=== PATIENT | male | born 1970 | race Caucasian/White ===

== ENCOUNTER 2018-05-22 15:45 | Emergency (ER) | payer OTHER ==
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
[2018-05-22] MEDS ORDERED: HYDROmorphONE/DILAUDID 2 MG/ML INJ IVP ONE ×2 (16:32→17:09)
[2018-05-22] MEDS ORDERED: IOPAMIDOL (ISOVUE 370) 100 ML BTL IV ONE (16:34)
[2018-05-22 17:45] VITALS: BP 115/97
== END 2018-05-22 17:43 | disposition home or self-care (01) ==
DX: M79.605 Pain in left leg (principal); M79.9 Soft tissue disorder, unspecified
CPT/HCPCS: 82435-PO; 82565-PO; 82947-PO; 84132-PO; 84295-PO; 84520-PO; 85014-PO; 96374; J1170; Q9967

== ENCOUNTER 2018-05-27 00:03 | Emergency (ER) | payer OTHER ==
[2018-05-27] MEDS ORDERED: HYDROCOD/APAP 5/325 PREPACK#6 BTL TAKEHOME ONE (01:13)
[2018-05-27] MEDS ORDERED: LIDOCAINE 4%/MENTHOL 1% PATCH TD ONE (01:21)
--- NOTE | 2018-05-27 01:21 | EDPHY ---
H & P Stated Complaint: increasing L leg pain, "broke an artery 11 days ago", "susie sx" Time Seen by Provider: 05/27/18 00:30 HPI/ROS: HPI The patient presents with left thigh pain with swelling which has been present for the last several days though seems to be not improving. On May 16 the patient had an injury to his left thigh. He was seen at [facility] where he had an intramuscular hematoma with concern for arterial injury and is status post Gel-Foam embolization of 2 small branches of an artery in his thigh. He was seen in our emergency department on the for leg pain. He had a CTA of the extremity performed at that time which was normal. He now has ongoing pain over the last several days and is concerned because he is not improving. As he reports an achy pain throughout his left thigh associated with swelling which is making it difficult for him to sleep. He denies any numbness or tingling of his leg. He denies any coolness of his leg. He is using a knee immobilizer at this time. He has no new injury to his leg. He is awaiting an orthopedics appointment with Dr. Tori Aguilar in 3 days. He has not had any fevers or chills. He has been taking Percocet which was prescribed initially from [facility] and then refilled from our emergency department. He says this is helping his pain somewhat. REVIEW OF SYSTEMS Constitutional: No fever, no chills. Eyes: No discharge. ENT: No sore throat. Cardiovascular: No chest pain, no palpitations. Respiratory: No cough, no shortness of breath. Gastrointestinal: No abdominal pain, no vomiting. Genitourinary: No hematuria. Musculoskeletal: No back pain. Skin: No rashes. Neurological: No headache. PMHx: Arterial injury with thigh hematoma as detailed above Soc Hx: Housed FHx: PHYSICAL General Appearance: Alert, no distress Eyes: Pupils equal and round no pallor or injection ENT, Mouth: Mucous membranes moist Respiratory: Breathing comfortably Neurological: A&O, moves all extremities Skin: Warm and dry, no rashes Musculoskeletal: Neck is supple non tender Extremities: Right anterior thigh is tender to palpation, compartments of the thigh are soft, there are no overlying skin changes, there are 2+ DP pulses, there full range of motion of his toes, his entire leg is warm Psychiatric: Patient is oriented X 3, there is no agitation Source: Patient Exam Limitations: No limitations - Personal History Current Tetanus Diphtheria and Acellular Pertussis (TDAP): No Tetanus Vaccine Date: ~ 2012 - Medical/Surgical History Hx Asthma: No Hx Chronic Respiratory Disease: No Hx Diabetes: No Hx Cardiac Disease: No Hx Renal Disease: No Hx Cirrhosis: No Hx Alcoholism: No Hx HIV/AIDS: No Hx Splenectomy or Spleen Trauma: No Other PMH: MED HX-NONE. SURG-RHINOPLASTY. CELIAC. "broken artery" - Social History Smoking Status: Never smoked Constitutional: Initial Vital Signs Temperature (C) 36.7 C 05/27/18 00:07 Heart Rate 84 05/27/18 00:07 Respiratory Rate 20 05/27/18 00:07 Blood Pressure 112/77 05/27/18 00:07 O2 Sat (%) 96 05/27/18 00:07 O2 Delivery Mode Room Air Allergies/Adverse Reactions: No Known Allergies Allergy (Verified 05/27/18 00:07) Home Medications: Medication Instructions Recorded oxyCODONE IR 05/22/18 oxyCODONE IR [Oxycodone Ir (*)] 5 - 10 mg PO Q6 PRN #20 tab 05/22/18 oxyCODONE IR [Oxycodone Ir (*)] 5 - 10 mg PO Q6 PRN #20 tab 05/22/18 Hydrocodone/APAP 5/325 [[place] 1 - 2 tab PO Q6H PRN #15 tab 05/27/18 5/325 (*)] Medical Decision Making Differential Diagnosis: This is a 48-year-old male who had a traumatic injury to his left thigh on May 16, now with continued pain and swelling of his thigh. On exam, compartments are soft, he is neurovascularly intact, he does have tenderness of his anterior thigh with some edema. He is concerned about compartment syndrome, however I do not see any signs of this and I have explained this to him. As he likely has soft tissue swelling which was found on his CTA of his leg which was performed on May 22 from the emergency department. I have recommended that he continue using the knee immobilizer, elevate the leg, ice it. I looked him up in the [facility] He only has 2 prescriptions for Percocet since he was discharged from the hospital, 1 from the hospital and 1 from our ED. I will give him a short course of [place] to try for his pain. He will follow up with Orthopedics as planned in a few days. Differential diagnosis includes soft tissue swelling, recurrent thigh hematoma, cellulitis, less likely compartment syndrome. - Data Points Medications Given: Discontinued Medications Hydrocodone Bitart/Acetaminophen ([place] 5/325mg Prepack#6) 1 btl TAKEHOME EDNOW ONE Stop: 05/27/18 01:14 Last Admin: 05/27/18 01:37 Dose: 1 btl Miscellaneous Medication (Icy Hot Lidocaine/Menthol 4%/1% Patch) 1 patch TD EDNOW ONE Stop: 05/27/18 01:22 Last Admin: 05/27/18 01:37 Dose: 1 patch Departure - Departure Disposition: Home, Routine, Self-Care Clinical Impression: Left thigh pain Condition: Good Instructions: Hydrocodone/Acetaminophen (By mouth), Lidocaine Patch (On the skin), Leg Pain (ED) Additional Instructions: I suspect your pain is due to healing of the tissues of the thigh. I recommend you take ibuprofen 200 mg every 6 hr. You should stop this if you have any increased pain. You can take Tylenol 1 g every 6 hr with this. If your pain is severe you can substitute [place] for Tylenol. Please follow-up with Dr. Aguilar as planned. Referrals: Manuelito Win MD [Primary Care Provider] - As per Instructions Tori Aguilar MD [Medical Doctor] - As per Instructions Prescriptions: Hydrocodone/APAP 5/325 [[place] 5/325 (*)] 1 - 2 tab PO Q6H PRN #15 tab PRN Reason: Pain, Breakthrough
[2018-05-27 01:49] VITALS: BP 140/84
[2018-05-27] MEDS ORDERED: PATCH REMOVAL 1 EA PATCH TD SCH (21:00)
== END 2018-05-27 01:49 | disposition home or self-care (01) ==
DX: M79.652 Pain in left thigh (principal)

== ENCOUNTER → 2018-06-18 | Outpatient (CLI) | payer OTHER | LOC: FIMAGING 18:33 | PROVIDERS: ATTEND Orthopaedic Surgery | DX: M23.322 Other meniscus derangements, posterior horn of medial meniscus, left knee (principal); M76.32 Iliotibial band syndrome, left leg ==